=== PATIENT | female | born 1990 | race Caucasian/White ===

== ENCOUNTER 2016-10-17 02:20 | Outpatient (CLI) | payer MEDICAID ==
[~2016-10-17] VITALS: Ht 148.6 cm; Wt 61.6 kg
[2016-10-17 02:25] VITALS: Ht 148.6 cm; Wt 61.6 kg
[2016-10-17 02:26] VITALS: BP 107/78; PULSE 69; RESP 18
[2016-10-17] MEDS ORDERED: PRENAT PO (02:37)
[2016-10-17] MEDS ORDERED: CALC600T11 PO (02:37)
[2016-10-17] MEDS ORDERED: CITRIC ACID/NA CITRATE 30 ML CUP PO ONE (03:00)
--- NOTE | 2016-10-17 03:39 | RADRPT ---
PROCEDURE: ULTRASOUND LIMITED ABDOMEN CLINICAL INDICATION: 26-year-old female with abdominal pain. TECHNIQUE: Multiple sonographic of the right upper quadrant of the abdomen were obtained. The imag es were reviewed on a PACS workstation. COMPARISON: None. FINDINGS: The pancreas is not well visualized secondary to overlying bowel gas. The liver displays normal echogenicity. The liver measures 13.9 cm in length. No evidence of intrah epatic biliary ductal dilatation is seen. The portal and hepatic veins are unremarkable. The gallbladder contains multiple shadowing stones. The gallbladder wall thickness is within normal limits measuring 2.8 mm. No pericholecystic fluid is seen. The common bile duct measures 3.4 mm and is not dilated. The right kidney displays normal echogenicity. The right kidney measures 9.5 cm in maximal length. T here are no focal areas of abnormal echogenicity. There is mild right-sided hydronephrosis. No free fluid is seen. IMPRESSION: 1. Cholelithiasis. 2. Mild right-sided hydronephrosis. .Beto Wilhelm MD, Date Time Electronically viewed and signed by .Beto Wilhelm MD, on 10/17/2016 03:39 .M/
--- NOTE | 2016-10-17 03:40 | RADRPT ---
PROCEDURE: ULTRASOUND OBSTETRICAL CLINICAL INDICATION: 26-year-old female with abdominal/pelvic pain for amniotic fluid evaluation. TECHNIQUE: Multiple sonographic images of the pelvis were obtained. The images were reviewed on a PACS workstation. COMPARISON: No prior studies are available for comparison. FINDINGS: The cervix is not well visualized. There is a single viable intrauterine gestation. Cardiac activit y is present with 146 beats per minute. There is a breech presentation. The placenta is anterior. There is no evidence for an abruption or placenta previa. The amniotic fluid index equals 8.4 cm. IMPRESSION: 1. Single viable intrauterine gestation with breech presentation. 2. The amniotic fluid index equals 8.4 cm. .Beto Wilhelm MD, Date Time Electronically viewed and signed by .Beto Wilhelm MD, on 10/17/2016 03:40 .M/
[2016-10-17 03:48] LABS: ALBUMIN 3.4 g/dl (3.3-4.9)
[2016-10-17 03:49] LABS: POTASSIUM 3.5 mmol/L (3.5-5.1)
[2016-10-17 03:51] LABS: ALBUMIN/GLOBULIN RATIO 1.09; BILIRUBIN,INDIRECT 0.1 mg/dl (0-1.1); BILIRUBIN,TOTAL 0.1 mg/dl (0.2-1.3); CREATININE 0.64 mg/dl (0.44-1.00); TOTAL PROTEIN 6.5 g/dl (6.1-8.1)
[2016-10-17 03:52] LABS: CALCIUM 9.7 mg/dl (8.4-10.2)
--- NOTE | 2016-10-17 05:35 | QN ---
Documentation Comment Laborist Dr Rubalcava's pt 26 y.o. G1 with an IUP at 37 weeks c/o epigastric pain. Pt denied a h/o gallstones. No nausea or vomiting. Pt reports she was breech at her last visit. Denies acid reflux or UC's. PMHx: Uterine fibroids. PSHx: none. NKDA. BP 107/78 T= 97.9. NST: baseline 130 bpm with accels to 170 bpm. No decels. UC's q 7-8 minutes. US: Multiple gallstones. No dilitation of the bile duct. No evidence of gallbladder wall inflammation. BREECH. TAMERA 8.4cm. LABS: ALT/AST . Pt was given Bicitra but it did't change her pain much. CX: closed. A: IUP at 37 weeks. Cholelithiasis. Breech. P: D/C home. Reviewed need to have a low fat diet to minimize the need for the gallbladder to contract. Tylenol prn. POLO REED MD Oct 17, 2016 05:35
--- NOTE | 2016-10-17 06:20 | TRIAGE ---
OB Triage Datetime Report Generated by CPN: 10/17/2016 06:20 Datetime: 10/17/2016 05:20 Stage of : OB Triage Datetime: 10/17/2016 05:00 Labor Evaluation Frequency: IRREGULAR Monitor Mode: External Duration (sec)2399: 70-120 Quality: Mild Pattern: Normal: <= 5 Contractions in 10 Minutes Resting Tone [place]: Relaxed Heart Rate FHR Baseline Rate: 135 Monitor Mode: External US FHR Baseline Changes: No Baseline Change Variability: Moderate 6-25 bpm Accelerations: 15X15 Decelerations: None Datetime: 10/17/2016 04:50 Stage of : OB Triage Datetime: 10/17/2016 04:00 Labor Evaluation Frequency: IRREGULAR Monitor Mode: External Duration (sec)2399: 70 Quality: Mild Pattern: Normal: <= 5 Contractions in 10 Minutes Resting Tone [place]: Relaxed Heart Rate FHR Baseline Rate: 135 Monitor Mode: External US FHR Baseline Changes: No Baseline Change Variability: Moderate 6-25 bpm Accelerations: 15X15 Decelerations: None Category: Category I Datetime: 10/17/2016 03:00 Labor Evaluation Frequency: IRREGULAR Monitor Mode: External Duration (sec)2399: 60-70 Quality: Mild Pattern: Normal: <= 5 Contractions in 10 Minutes Resting Tone [place]: Relaxed Heart Rate FHR Baseline Rate: 125 Monitor Mode: External US FHR Baseline Changes: No Baseline Change Variability: Moderate 6-25 bpm Accelerations: 15X15 Decelerations: None Category: Category I Datetime: 10/17/2016 02:47 Stage of : OB Triage Membrane Status: Intact Datetime: 10/17/2016 02:38 Vaginal Exam Dilatation (cms): 0.0 Effacement (%): 0 Station: -3 Exam By: Elke CUEVAS RN Vaginal Bleeding: None Cervix, Consistency: Firm Cervix, Position: Posterior Datetime: 10/17/2016 02:29 Stage of : OB Triage Assessment Type: Triage Time of Arrival: 10/17/2016 02:59 EGA: 37.0 Arrived By: Wheelchair Arrived From: Home Chief Complaint: EPIGASTRIC PAIN/ NAUSEA Movement: Present Contractions: Denies/Absent Rupture of Membranes: Denies Vaginal Bleeding: None Vaginal Discharge: Denies Recent Sexual Intercouse: Denies Patient Complaints: None Time Provider Notified: 10/17/2016 02:47 Provider Notified: DR REED Initial Plan: CALL DAHLIA GREENE Maternal Assessment Level of Consciousness: Fully Conscious DTR's/Clonus: DTRs 2+; No Clonus Headache: Denies Blurred Vision: No Respiratory Effort: Unlabored; Regular Rhythm; Equal Expansion Breath Sounds, Left: Clear and Equal Breath Sounds, Right: Clear and Equal Nausea/Vomiting: Denies RUQ Epigastric Pain: Denies Lower Extremities Edema: None Degree: None Upper Extremities Edema: None Degree: None Facial Edema: None Temperature Route: Oral Fall Risk Assessment History of Falling: (0) No Secondary Diagnosis: (0) No Ambulatory Aid: (0) Bedrest/Nurse Assist IV Therapy: (0) No Gait: (0) Normal/Bedrest/Immobile Mental Status: (0) Oriented to Own Ability Fall Score: 0 Fall Risk Score Definition: No Risk: No action required Monitor Mode: External Monitor Mode: External US Pain Assessment Pain Scale: 7 Pain Presence: Intermittent Pain Location: Abdomen Datetime: 10/17/2016 02:24 Time of Arrival: 10/17/2016 02:16 EGA: 37.0 Arrived By: Wheelchair Arrived From: Home Movement: Present Contractions: Denies/Absent Patient Complaints: Epigastric Pain
== END 2016-10-17 05:30 | disposition home or self-care (01) ==
LOC: OBT 02:20 → L-D 02:20 → OBT 05:30
PROVIDERS: ATTEND Obstetrics & Gynecology
DX: O99.613 Diseases of the digestive system complicating pregnancy, third trimester (principal); K80.20 Calculus of gallbladder without cholecystitis without obstruction; Z3A.37 37 weeks gestation of pregnancy
CPT/HCPCS: 36415; 76705; 76815; 80053; Z7500; Z7610; G0463

== ENCOUNTER 2016-10-30 17:41 | Inpatient (IN) | payer MEDICAID ==
[~2016-10-30] VITALS: Ht 149.9 cm; Wt 63.4 kg
[~2016-10-30 17:41] MED LIST: CALC600T11 PO; PRENAT PO
[2016-10-30 17:47] VITALS: Ht 149.9 cm; Wt 63.4 kg
[2016-10-30 17:48] VITALS: BP 112/66; RESP 19
--- NOTE | 2016-10-30 18:03 | TRIAGE ---
OB Triage Datetime Report Generated by CPN: 10/30/2016 18:02 Datetime: 10/30/2016 17:57 Vaginal Exam Dilatation (cms): 3.0 Effacement (%): 90 Station: -2 Exam By: MAGALY SMITH Vaginal Bleeding: None Cervix, Consistency: Soft Cervix, Position: Midposition Presentation 'A': Cephalic Datetime: 10/30/2016 17:46 Assessment Type: Triage Maternal Assessment Level of Consciousness: Fully Conscious DTR's/Clonus: DTRs 2+; No Clonus Headache: Denies Blurred Vision: No Respiratory Effort: Unlabored; Regular Rhythm; Equal Expansion Breath Sounds, Left: Clear and Equal Breath Sounds, Right: Clear and Equal Nausea/Vomiting: Denies RUQ Epigastric Pain: Denies Lower Extremities Edema: None Degree: None Upper Extremities Edema: None Degree: None Facial Edema: None Fall Risk Assessment History of Falling: (0) No Secondary Diagnosis: (0) No Ambulatory Aid: (0) Bedrest/Nurse Assist IV Therapy: (0) No Gait: (0) Normal/Bedrest/Immobile Mental Status: (0) Oriented to Own Ability Fall Score: 0 Fall Risk Score Definition: No Risk: No action required Datetime: 10/30/2016 17:45 Time of Arrival: 10/30/2016 17:45 EGA: 38.6 Arrived By: Ambulatory Arrived From: Home Chief Complaint: PT CAME IN C/O LEAKING FLUID SINCE 1200 Movement: Present Contractions: Denies/Absent Rupture of Membranes: Denies Vaginal Discharge: Denies Recent Sexual Intercouse: Denies Abdominal Trauma: Not Applicable Additional Patient Complaints: NONE Time Provider Notified: 10/30/2016 18:00 Provider Notified: TUCKER Initial Plan: MONITOR, ROM PLUS AND VE Datetime: 10/17/2016 02:29 EGA: 37.0 Fall Score: 0 Fall Risk Score Definition: No Risk: No action required Datetime: 10/17/2016 02:24 EGA: 37.0
[2016-10-30] MEDS ORDERED: LACTATED RINGER'S 1,000 ML IV SCH (18:40)
[2016-10-30 18:48] LABS: ADD SCAN DIFF NO
--- NOTE | 2016-10-30 18:49 | RADRPT ---
PROCEDURE: US OB. CLINICAL INDICATION: Position, spontaneous rupture of membranes TECHNIQUE: Transabdominal views of the pelvis are available for review. COMPARISON: None. FINDINGS: There is a single intrauterine gestation in a breech position. The heart rate is present at 144 bpm. The placenta is anterior and to the left in location. There is no evidence of placenta previa or a placental abruption. RPTAT: AA IMPRESSION: Breech presentation. Physician Moe Date Time Electronically viewed and signed by Physician Moe on 10/30/2016 18:49 RA/
[2016-10-30 18:51] LABS: BASOPHILS % 0.1 % (0.0-2.0); EOSINOPHILS # 0.1 10^3/ul (0.0-0.5); EOSINOPHILS % 0.5 % (0.0-7.0); HEMATOCRIT 33.4 % (37.0-47.0); HEMOGLOBIN 11.6 g/dl (12.0-16.0); LYMPHOCYTES # 2.1 10^3/ul (0.8-2.9); LYMPHOCYTES % 22.8 % (15.0-51.0); MEAN CORPUSCULAR HEMOGLOBIN 32.6 pg (29.0-33.0); MEAN CORPUSCULAR HGB CONC 34.7 g/dl (32.0-37.0); MEAN CORPUSCULAR VOLUME 93.8 fl (82.0-101.0); MEAN PLATELET VOLUME 11.3 fl (7.4-10.4); MONOCYTE # 0.6 10^3/ul (0.3-0.9); MONOCYTES % 6.5 % (0.0-11.0); NEUTROPHIL # 6.3 10^3/ul (1.6-7.5); NEUTROPHILS % 69.6 % (39.0-77.0); PLATELET COUNT 209 10^3/UL (140-415); RED BLOOD COUNT 3.56 10^6/ul (4.20-5.40); RED CELL DISTRIBUTION WIDTH 13.2 % (11.5-14.5); WHITE BLOOD COUNT 9.1 10^3/ul (4.8-10.8)
[2016-10-30] MEDS ORDERED: METHYLERGONOVINE 0.2 MG INJ IM PRN (19:00)
[2016-10-30] MEDS ORDERED: OXYTOCIN 30 UNITS/LR 500 ML IV PRN (19:00)
[2016-10-30] MEDS ORDERED: CEFAZOLIN 2 GM/50 ML (PMX) 50 ML IV SCH (19:00)
[2016-10-30] MEDS ORDERED: CARBOPROST 250 MCG INJ IM PRN (19:00)
[2016-10-30] MEDS ORDERED: OXYTOCIN 30 UNITS/LR 500 ML IV SCH (19:00)
[2016-10-30] MEDS ORDERED: MISOPROSTOL 200 MCG TAB PR PRN (19:00)
[2016-10-30 19:06] LABS: PARTIAL THROMBOPLASTIN TIME 26.4 Sec (25.0-35.0)
[2016-10-30 19:27] LABS: INR 0.94; PROTIME 12.6 Sec (12.2-14.2)
[2016-10-30] MEDS ORDERED: CITRIC ACID/NA CITRATE 30 ML CUP PO ONE (19:30)
[2016-10-30] MEDS ORDERED: morphine SULFATE/PF (10 MG/10 ML) INJ ONE (19:52)
[2016-10-30] MEDS ORDERED: PHENYLephrine (100 MCG/ML) 5ML SYG ONE (19:52)
[2016-10-30] MEDS ORDERED: ONDANSETRON 4 MG INJ ONE (20:06)
[2016-10-30] MEDS ORDERED: EPHEDrine SULFATE 50 MG/5 ML SYG ONE (20:06)
[2016-10-30] MEDS ORDERED: METOCLOPRAMIDE 10 MG INJ IV PRN (20:30)
[2016-10-30] MEDS ORDERED: HYDROmorphONE 1 MG/ML SYG IV PRN ×2 (20:30)
[2016-10-30] MEDS ORDERED: ONDANSETRON 4 MG INJ IV PRN (20:30)
[2016-10-30] MEDS ORDERED: MEPERIDINE 25 MG INJ IV PRN (20:30)
[2016-10-30] MEDS ORDERED: HYDROmorphONE (0.2 MG/ML) 10ML SYG IV PRN ×3 (20:30)
[2016-10-30] MEDS ORDERED: DIPHENHYDRAMINE 50 MG INJ IV PRN ×2 (20:30)
[2016-10-30] MEDS ORDERED: NALOXONE (0.4 MG/ML) INJ IV PRN (20:30)
[2016-10-30] MEDS ORDERED: FENTAnyl 50 MCG/ML VIAL IV PRN (20:30)
[2016-10-30] MEDS ORDERED: FENTAnyl 50 MCG/ML VIAL ONE (20:31)
--- NOTE | 2016-10-30 21:04 | HP ---
Date/Time of Note Date/Time of Note DATE: 10/30/16 TIME: 20:59 OB - History Hx of Present Free Text/Dictation admitted for C/O SROM and labor pains started in PM Last Menstrual Period: December 30, 2016 Estimated Due Date: Oct 07, 2016 : 1 Para: 0 Care: Good Care Ultrasounds: Normal mid trimester US Obstetrical Complications: None, Growth Restriction, Other (leiomyoma of the uterus ) Medical Complications: None Past Family/Social History * Past Medical, Surgical, Family and Obstetric Histories reviewed from chart. Blood Type: O+ Rubella: immune RPR/VDRL: Negative GBS Status: Unknown HBsAG: Negative OB Admission Exam Vital Signs Vital Signs Vital Signs Date Time Temp Pulse Resp B/P Pulse Ox O2 Delivery O2 Flow Rate FiO2 10/30/16 17:48 98.0 19 112/66 99 Room Air Physical Exam HEENT: WNL Heart: Rhythm Normal Lungs: Clear, Equal Abdomen: WNL Extremities: Normal Reflexes: Normal Cervical Dilatation: 3cm Effacement: 50% Station: -3 Membranes: Intact Heart Rate: 130's Accelerations: Accelerations Present Decelerations: No Decelerations Varibility: Moderate Contractions on Admission: 6-10 Minutes Apart Date/Time Contractions Began: 10/30/2016 Frequency of Contractions: q5 Duration: >45 seconds Intensity: Mild Last 72 hours Lab Results CBC & BMP 10/30/16 18:30 OB Assessment/Plan Reason for admission: section (for breech presentation ) Other Assessment: term gestation breech presentation labor pains Other plan: primary C/S JENN WHITE MD Oct 30, 2016 21:04
--- NOTE | 2016-10-30 21:10 | OPR ---
Operative Report Planned Procedure Procedure date Oct 30, 2016 Procedure(s) primary C/S Performed by: JENN WHITE MD Assisting provider: MARISA MARINELLI MD Anesthesiologist: PETAR RITCHIE Pre-procedure diagnosis term gestation breech presentation labor pains Anesthesia Type: spinal Procedure Description Under satisfactory anaesthesia a Pfannenstiel incision was made two fingerbreadth above and parallel to the symphysis of pubis. Incision was extended laterally to the border of the Recti muscles on either sides. Incision was carried down with sharp and blunt dissection until fascia was reached. Anterior Recti muscle fascia was incised in mid portion and incision extended laterally to the border of skin incision. Fascia was mobilized from muscle superiorly and Recti muscles were from midline using sharp and blunt dissection. Peritoneum was visualized; Avoiding bowel and bladder it was incised . Incision was extended superiorly and inferiorly. Bladder blade was placed. Posterior peritoneum covering the lower segment of the uterus and lower segment of the uterus were incised. Incision was extended laterally to the border of Round Lig. on either sides and baby was delivered via total breech extraction without difficulty . Amniotic fluid appeared clear. Cord blood was obtained and cord had 3 vessels . Placenta was delivered spontaneously and appeared intact and complete. Intrauterine cavity was rubbed with a laparotomy sponge. Uterine incision was closed in 2 layers using running stitches of No1 Monocryl. Hemostasis appeared secure. Ovaries and Fallopian tubes were within normal limits. Announcing needle, lap sponge and instrument count to be correct abdomen was closed in layers as follows: Peritoneum and Recti muscles with running stitches of 20 Vicryl. Fascia with running stitch of No 1 PDS. Subcutaneous tissue with running stitches of 20 Chromic and skin was closed using trevon. Patient tolerated the procedure well and was transferred to [facility] in good condition. Post-Procedure Post-procedure diagnosis S/P C/S Findings: Live Baby in hector breech presentation 7X 7X 10 cm uterine leiomyoma in posterior wall Specimen removed: No Complications: None Pt Condition post procedure: stable Disposition: PACU Physician Certification I, the undersigned physician, hereby certify that I have discussed the procedure described in this consent form with this patient (or the patient's legal electronics parts sales representative), including: * The risk and benefits of the procedure; * Any adverse reactions that may reasonably be expected to occur; * Any alternative efficacious methods of treatment which may be medically viable ; * The potential problems that may occur during recuperation; * Potential for blood transfusion and associated risks/benefits; and * Any research or economic interest I may have regarding this treatment. I further certify that the patient/legally responsible person was encouraged to ask question and that all questions were answered. JENN WHITE MD Oct 30, 2016 21:10
[2016-10-30] MEDS: KETOROLAC 30 MG INJ IV PRN (21:30)
[2016-10-30 23:30] VITALS: BP 118/72; PULSE 65; RESP 18
[2016-10-31] MEDS ORDERED: NA PHOSPHATE/BIPHOS 133 ML ENEMA PR PRN
[2016-10-31] MEDS ORDERED: CARBOPROST 250 MCG INJ IM PRN
[2016-10-31] MEDS ORDERED: LANOLIN 7 GM TUBE TOP PRN
[2016-10-31] MEDS ORDERED: MISOPROSTOL 200 MCG TAB PR PRN
[2016-10-31] MEDS ORDERED: OXYTOCIN 30 UNITS/LR 500 ML IV PRN
[2016-10-31] MEDS ORDERED: METHYLERGONOVINE 0.2 MG INJ IM PRN
[2016-10-31] MEDS: CLINDAMYCIN 300 MG CAP PO SCH ×4 (00:23→18:09)
[2016-10-31] MEDS: LACTATED RINGER'S 1,000 ML IV SCH ×3 (01:05→17:23)
[2016-10-31 04:00] VITALS: BP 106/58; PULSE 68; RESP 18
[2016-10-31] MEDS: CEFAZOLIN 2 GM/50 ML (PMX) 50 ML IVPB SCH ×3 (04:42→21:23)
[2016-10-31 08:02] LABS: ADD SCAN DIFF NO
[2016-10-31 08:05] LABS: BASOPHILS % 0.1 % (0.0-2.0); EOSINOPHILS % 0.1 % (0.0-7.0); HEMATOCRIT 31.2 % (37.0-47.0); HEMOGLOBIN 10.9 g/dl (12.0-16.0); LYMPHOCYTES # 1.4 10^3/ul (0.8-2.9); LYMPHOCYTES % 9.1 % (15.0-51.0); MEAN CORPUSCULAR HEMOGLOBIN 32.7 pg (29.0-33.0); MEAN CORPUSCULAR HGB CONC 34.9 g/dl (32.0-37.0); MEAN CORPUSCULAR VOLUME 93.7 fl (82.0-101.0); MEAN PLATELET VOLUME 10.8 fl (7.4-10.4); MONOCYTE # 0.6 10^3/ul (0.3-0.9); NEUTROPHIL # 13.2 10^3/ul (1.6-7.5); PLATELET COUNT 187 10^3/UL (140-415); RED BLOOD COUNT 3.33 10^6/ul (4.20-5.40); RED CELL DISTRIBUTION WIDTH 13.3 % (11.5-14.5); WHITE BLOOD COUNT 15.3 10^3/ul (4.8-10.8)
[2016-10-31 08:30] VITALS: BP 96/54; PULSE 77; RESP 16
[2016-10-31] MEDS: KETOROLAC 30 MG INJ IV PRN ×2 (08:53→15:19)
[2016-10-31] MEDS: SENNA/DOCUSATE NA (8.6MG/50MG) TAB PO SCH ×2 (08:53→20:08)
--- NOTE | 2016-10-31 09:12 | CONS ---
Date/Time of Note Date/Time of Note DATE: 10/31/16 TIME: 09:10 Consultation Date/Type/Reason Admit Date/Time Oct 30, 2016 at 18:00 Initial Consult Date 10/31/16 Type of Consultation: Anesthesiology Reason for Consultation Follow-up visit 24 HR Interval Summary Free Text/Dictation Pt seen and examined s/p POD#1 received Duramorph spinal anesthetic for post-op pain x24 hours. Pt states she has minimal pain which is controlled adequately, no N/V/D/NOONAN. Will follow up PRN. Constitutional: no complaints Exam/Review of Systems Vital Signs Vitals Vital Signs Date Time Temp Pulse Resp B/P Pulse Ox O2 Delivery O2 Flow Rate FiO2 10/31/16 04:00 98.0 68 18 106/58 Room Air 10/30/16 17:48 99 Intake and Output 10/30/16 10/30/16 10/31/16 15:00 23:00 07:00 Intake Total 1200 ml 375 ml Output Total 1850 ml 550 ml Balance -650 ml -175 ml Results Result Diagram: 10/31/16 0745 Results 24 hrs Laboratory Tests Test 10/30/16 17:58 10/30/16 18:30 10/31/16 07:45 Membranes Rupture NEGATIVE White Blood Count 9.1 15.3 #H Red Blood Count 3.56 L 3.33 L Hemoglobin 11.6 L 10.9 L Hematocrit 33.4 L 31.2 L Mean Corpuscular Volume 93.8 93.7 Mean Corpuscular Hemoglobin 32.6 32.7 Mean Corpuscular Hemoglobin Concent 34.7 34.9 Red Cell Distribution Width 13.2 13.3 Platelet Count 209 187 Mean Platelet Volume 11.3 H 10.8 H Neutrophils % 69.6 86.0 H Lymphocytes % 22.8 9.1 L Monocytes % 6.5 4.0 Eosinophils % 0.5 0.1 Basophils % 0.1 0.1 Nucleated Red Blood Cells % 0.0 0.0 Neutrophils # 6.3 13.2 H Lymphocytes # 2.1 1.4 Monocytes # 0.6 0.6 Eosinophils # 0.1 0.0 Basophils # 0.0 0.0 Nucleated Red Blood Cells # 0.0 0.0 Prothrombin Time 12.6 Prothrombin Time Ratio 1.0 INR International Normalized Ratio 0.94 Activated Partial Thromboplast Time 26.4 Medications Medications Current Medications Ketorolac Tromethamine (Toradol) 30 mg Q6H PRN IV PAIN Last administered on 08:53; Admin Dose 30 MG; Start 10/30/16 at 20:30; Stop 10/31/16 at 20:29 Hydromorphone HCl (Dilaudid) 0.2 mg Q3H PRN IV PAIN LEVEL 1-5; Start 10/30/16 at 20:30; Stop 10/31/16 at 20:29 Hydromorphone HCl (Dilaudid) 0.4 mg Q3H PRN IV PAIN LEVEL 6-10 Last administered on 10/31/16 00:58; Admin Dose 0.4 MG; Start 10/30/16 at 20:30; Stop 10/31/16 at 20:29 Diphenhydramine HCl 25 mg 25 mg Q6H PRN IV ITCHING; Start 10/30/16 at 20:30; Stop 10/31/16 at 20:29 Lactated Ringer's 1,000 ml @ 125 mls/hr Q8H IV Last administered on 10/31/16 08:52; Admin Dose 125 MLS/HR; Start 10/30/16 at 23:49 Cefazolin Sodium/ Dextrose (Ancef 2 Gm/50 ml (Pmx)) 50 ml @ 100 mls/hr Q8H IVPB Last administered on 10/31/16 04:42; Admin Dose 100 MLS/HR; Start at 05:00; Stop 10/31/16 at 21:29 Ibuprofen (Motrin) 800 mg Q8 PO ; Start 10/31/16 at 22:00 Simethicone (Mylicon) 160 mg Q8H PRN PO DISTENSION/GAS/BLOATING; Start at 00:00 Senna/Docusate Sodium (Senokot-S) 1 tab BID PO Last administered on 10/31/16 08:53; Admin Dose 1 TAB; Start 10/31/16 at 09:00 Sodium Biphosphate/ Sodium Phosphate (Fleet Enema) 133 ml DAILY PRN [place] CONSTIPATION; Start 10/31/16 at 00:00 Diphtheria/ Tetanus/Acell Pertussis 0.5 ml 0.5 ml ONCE ONCE IM* ; Start at 09:00; Stop 11/02/16 at 09:01 Oxytocin/Lactated Ringer's 500 ml @ 0 mls/hr ONCE PRN IV For Hemorrhage Management; Start 10/31/16 at 00:00 Methylergonovine Maleate (Methergine) 0.2 mg ONCE PRN IM VAGINAL BLEEDING; Start 10/31/16 at 00:00 Carboprost Tromethamine (Hemabate) 250 mcg ONCE PRN IM VAGINAL BLEEDING; Start 10/31/16 at 00:00 Misoprostol (Cytotec) 1,000 mcg ONCE PRN [place] VAGINAL BLEEDING; Start 10/31/16 at 00:00 Acetaminophen/ Codeine Phosphate (Tylenol No.3) 2 tab Q4H PRN PO PAIN LEVEL 1-5 ; Start 10/31/16 at 20:30 Oxycodone/ Acetaminophen (Percocet (5/ 325)) 2 tab Q4H PRN PO PAIN LEVEL 6-10; Start 10/31/16 at 20:30 Clindamycin HCl (Cleocin) 300 mg Q6 PO Last administered on 10/31/16t 05:36; Admin Dose 300 MG; Start 10/31/16 at 00:00 Bisacodyl (Dulcolax Supp) 10 mg ONCE ONCE [place] ; Start 10/31/16 at 10:00; Stop at 10:01 PETAR RITCHIE Oct 31, 2016 09:12
--- NOTE | 2016-10-31 09:34 | RADRPT ---
PROCEDURE: XR Chest 1 View. CLINICAL INDICATION: Positive PPD TECHNIQUE: AP view of the chest was obtained. COMPARISON: None. FINDINGS: The cardiomediastinal silhouette is within normal limits. No consolidations are identified. No pneu mothorax is seen. Osseous structures are intact. IMPRESSION: Clear lungs. No radiographic evidence of active tuberculosis infection. RPTAT: AA .Hamzah Capone MD, Date Time Electronically viewed and signed by .Hamzah Capone MD, on 10/31/2016 09:34 .P/
[2016-10-31] MEDS ORDERED: BISACODYL 10 MG SUPP PR ONE (10:00)
[2016-10-31 12:00] VITALS: BP 93/54; PULSE 85; RESP 16
[2016-10-31 15:20] VITALS: BP 101/59; PULSE 85; RESP 16
--- NOTE | 2016-10-31 15:25 | PN ---
Date/Time of Note Date/Time of Note DATE: 10/31/16 TIME: 15:22 Assessment/Plan VTE Prophylaxis VTE Prophylaxis Intervention: ambulation Lines/Catheters IV Catheter Type (from Nrsg): Peripheral IV Assessment/Plan Assessment/Plan POD # 1 S/P C/S will advance diet and ambulate Subjective 24 Hr Interval Summary NO BM Passing flatus Constitutional: BM, ambulates, flatus, improved, no complaints, urine output Pain Control: well controlled Exam/Review of Systems Vital Signs Vitals Vital Signs Date Time Temp Pulse Resp B/P Pulse Ox O2 Delivery O2 Flow Rate FiO2 10/31/16 12:00 98.3 85 16 93/54 Room Air 10/30/16 17:48 99 Intake and Output 10/30/16 10/30/16 10/31/16 15:00 23:00 07:00 Intake Total 1200 ml 375 ml Output Total 1850 ml 550 ml Balance -650 ml -175 ml Exam Free Text/Dictation VSS P/E: NL incision covered Abdomen: soft bs + Constitutional: alert, oriented, well developed Psych: nl mood/affect, no complaints Head: atraumatic, normocephalic Eyes: EOMI, nl conjunctiva, nl lids, nl sclera ENMT: mucosa pink and moist, nl external ears & nose, nl lips & teeth, nl nasal mucosa & septum Neck: non-tender, supple Respiratory: clear to auscultation, normal air movement Cardiovascular: nl pulses, regular rate and rhythm Gastrointestinal: nl liver, spleen, non-tender, soft Musculoskeletal: nl extremities to inspection, nl gait and stance Extremities: normal pulses Neurological: CARD BRUSHER II-XII intact, nl mental status, nl speech, nl strength Skin: nl turgor, rash or lesions Lymph: nl lymph nodes Results Result Diagram: 10/31/16 0745 JENN WHITE MD Oct 31, 2016 15:25
[2016-10-31] MEDS ORDERED: INFLUENZA VIRUS VACCINE 0.5 ML (DISPENSING) IM* ONE (19:30)
[2016-10-31 20:00] VITALS: BP 90/57; RESP 18
[2016-10-31] MEDS: OXYCODONE/ACETAMINOPHEN (5/325) TAB PO PRN (20:09)
[2016-10-31] MEDS ORDERED: ACETAMINOPHEN/CODEINE #3 TAB PO PRN (20:30)
[2016-10-31] MEDS: IBUPROFEN 800 MG TAB PO SCH (21:23)
[2016-11-01] MEDS: CLINDAMYCIN 300 MG CAP PO SCH ×5 (00:30→23:51)
[2016-11-01 04:00] VITALS: BP 91/53; PULSE 88; RESP 19
[2016-11-01] MEDS: IBUPROFEN 800 MG TAB PO SCH ×3 (05:31→22:23)
[2016-11-01 08:46] LABS: ADD SCAN DIFF NO
[2016-11-01 08:53] LABS: BASOPHILS % 0.2 % (0.0-2.0); EOSINOPHILS # 0.1 10^3/ul (0.0-0.5); EOSINOPHILS % 0.5 % (0.0-7.0); HEMATOCRIT 31.1 % (37.0-47.0); HEMOGLOBIN 10.9 g/dl (12.0-16.0); LYMPHOCYTES # 1.4 10^3/ul (0.8-2.9); LYMPHOCYTES % 9.2 % (15.0-51.0); MEAN CORPUSCULAR HEMOGLOBIN 33.3 pg (29.0-33.0); MEAN CORPUSCULAR VOLUME 95.1 fl (82.0-101.0); MEAN PLATELET VOLUME 11.2 fl (7.4-10.4); MONOCYTE # 0.5 10^3/ul (0.3-0.9); MONOCYTES % 3.1 % (0.0-11.0); NEUTROPHIL # 12.8 10^3/ul (1.6-7.5); NEUTROPHILS % 86.5 % (39.0-77.0); PLATELET COUNT 218 10^3/UL (140-415); RED BLOOD COUNT 3.27 10^6/ul (4.20-5.40); RED CELL DISTRIBUTION WIDTH 13.7 % (11.5-14.5); WHITE BLOOD COUNT 14.8 10^3/ul (4.8-10.8)
[2016-11-01] MEDS: SENNA/DOCUSATE NA (8.6MG/50MG) TAB PO SCH ×2 (09:00→20:19)
[2016-11-01 09:30] VITALS: BP 83/56; PULSE 95; RESP 20
[2016-11-01] MEDS: OXYCODONE/ACETAMINOPHEN (5/325) TAB PO PRN ×2 (11:53→20:19)
[2016-11-01] MEDS: LACTATED RINGER'S 1,000 ML IV SCH ×2 (13:55→13:56)
[2016-11-01 16:00] VITALS: BP 96/67; PULSE 85; RESP 19
--- NOTE | 2016-11-01 17:38 | DS ---
Date/Time of Note Date/Time of Note home next day DATE: 11/01/16 TIME: 17:36 Obstetrical Discharge Record Final Diagnosis Final Diagnosis: Term delivered Other Final Diagnosis S/P C/S Section Section: Primary Primary Indication Breech presentation Condition on Discharge Physical Assessment Last Vitals: See nurses notes Voiding: Yes Bowel Movement: Yes Breast: Soft, non-tender, Filling Fundus: Firm Abdomen and Incision: soft BS + Incision: healing well Episiotomy: NA Calf Tenderness: No Patient Condition: Good JENN WHITE MD Nov 01, 2016 17:38
--- NOTE | 2016-11-01 17:44 | DS ---
Date/Time of Note Date/Time of Note DATE: 11/01/16 TIME: 17:38 Discharge Summary Admission/Discharge Info Admit Date/Time Oct 30, 2016 at 18:00 Discharge Date/Time 11/02/2016 Final Diagnosis S/P C/S Patient Condition: Good Procedures primary C/S Hx of Present Illness 26 y/o female underwent primary C/S for breech presentation Hospital Course Uncomplicated Home Meds Reported Medications Calcium Carbonate* (Calcium Carbonate*) 600 MG Ca Tab, 600 MG PO DAILY, TAB 10/17/16 Multivit/Min/Fol Ac/Iron/Pren* ( S*) 1 Tab Tab, 1 TAB PO DAILY, TAB 10/17/16 Follow-up Plan 2 -3 days for staple removal Pending Labs Laboratory Tests Test 11/01/16 08:23 White Blood Count 14.810^3/ul (4.8-10.8) Red Blood Count 3.2710^6/ul (4.20-5.40) Hemoglobin 10.9g/dl (12.0-16.0) Hematocrit 31.1% (37.0-47.0) Mean Corpuscular Volume 95.1fl (82.0-101.0) Mean Corpuscular Hemoglobin 33.3pg (29.0-33.0) Mean Corpuscular Hemoglobin Concent 35.0g/dl (32.0-37.0) Red Cell Distribution Width 13.7% (11.5-14.5) Platelet Count 42803^3/UL (140-415) Mean Platelet Volume 11.2fl (7.4-10.4) Neutrophils % 86.5% (39.0-77.0) Lymphocytes % 9.2% (15.0-51.0) Monocytes % 3.1% (0.0-11.0) Eosinophils % 0.5% (0.0-7.0) Basophils % 0.2% (0.0-2.0) Nucleated Red Blood Cells % 0.0/100WBC (0.0-0.0) Neutrophils # 12.810^3/ul (1.6-7.5) Lymphocytes # 1.410^3/ul (0.8-2.9) Monocytes # 0.510^3/ul (0.3-0.9) Eosinophils # 0.110^3/ul (0.0-0.5) Basophils # 0.010^3/ul (0.0-0.1) Nucleated Red Blood Cells # 0.010^3/ul (0.0-0.0) JENN WHITE MD Nov 01, 2016 17:44
--- NOTE | 2016-11-01 17:46 | PD.PPDC ---
DIRECTOR DISTRIBUTION Discharge Instruction Provider Information Physician Information 26 y/o female underwent primary C/S Diagnosis Final Diagnosis: S/P C/S Condition Patient Condition: Good Diet Diet: Resume Regular Diet Activity/Restrictions Activity: December Shower Restrictions: No Exercising No Lifting Nothing in the Vagina Return to Work or School: December 31, 2016 Follow-up Follow-up with Physician: 3, Day/Days (in clinic for staple removal ) Return to clinic for CAFE ASSISTANT Instructions: Fever greater than 101 Chills OB Instructions: Breast Tenderness Depression Surgical Instructions: Incisional Drainage Incisional Redness JENN WHITE MD Nov 01, 2016 17:46
[2016-11-01] MEDS ORDERED: Oxycodone/Acetamin (5/325) PO (17:49)
[2016-11-01] MEDS ORDERED: IBUP800T25 PO (17:49)
[2016-11-01 20:19] VITALS: BP 92/67; PULSE 102; RESP 18
[2016-11-02 04:00] VITALS: BP 98/54; PULSE 86; RESP 18
[2016-11-02] MEDS: IBUPROFEN 800 MG TAB PO SCH ×2 (05:32→14:02)
[2016-11-02] MEDS: CLINDAMYCIN 300 MG CAP PO SCH ×2 (05:32→12:30)
[2016-11-02 08:08] LABS: ADD SCAN DIFF NO
[2016-11-02 08:11] LABS: BASOPHILS % 0.2 % (0.0-2.0); EOSINOPHILS # 0.2 10^3/ul (0.0-0.5); EOSINOPHILS % 1.6 % (0.0-7.0); HEMATOCRIT 28.2 % (37.0-47.0); HEMOGLOBIN 9.5 g/dl (12.0-16.0); LYMPHOCYTES # 1.6 10^3/ul (0.8-2.9); MEAN CORPUSCULAR HEMOGLOBIN 32.2 pg (29.0-33.0); MEAN CORPUSCULAR HGB CONC 33.7 g/dl (32.0-37.0); MEAN CORPUSCULAR VOLUME 95.6 fl (82.0-101.0); MONOCYTE # 0.6 10^3/ul (0.3-0.9); MONOCYTES % 4.8 % (0.0-11.0); NEUTROPHIL # 9.7 10^3/ul (1.6-7.5); NEUTROPHILS % 79.7 % (39.0-77.0); PLATELET COUNT 209 10^3/UL (140-415); RED BLOOD COUNT 2.95 10^6/ul (4.20-5.40); RED CELL DISTRIBUTION WIDTH 13.8 % (11.5-14.5); WHITE BLOOD COUNT 12.1 10^3/ul (4.8-10.8)
[2016-11-02] MEDS: SENNA/DOCUSATE NA (8.6MG/50MG) TAB PO SCH (08:49)
[2016-11-02] MEDS ORDERED: DIPHTH/TET/ACEL PERTUSS (ADULT) 0.5 ML VIAL IM* ONE (09:00)
[2016-11-02] MEDS ORDERED: CLIN-73 PO (15:06)
[2016-11-02] MEDS: OXYCODONE/ACETAMINOPHEN (5/325) TAB PO PRN (15:39)
[2016-11-02 16:00] VITALS: BP 91/63; PULSE 86; RESP 18
== END 2016-11-02 18:47 | disposition home or self-care (01) | DRG 766 ==
LOC: OBT 17:41 → L-D 17:41 → OBT 18:00 → L-D 19:44 → PP1 23:30
PROVIDERS: ADMIT Obstetrics & Gynecology; ATTEND Obstetrics & Gynecology
PROC: 10D00Z1 Extraction of Products of Conception, Low, Open Approach (ICD-10-PCS; principal; 2016-10-30 22:00)
DX: O32.1XX0 Maternal care for breech presentation, not applicable or unspecified (principal); Z37.0 Single live birth; Z3A.37 37 weeks gestation of pregnancy
CPT/HCPCS: 71010; 76815; 84112; 85025; 85610; 85730; 86592; 86850; 86900; 86901; 86920; 90686; 90715; 99464; G0463; J0690; J1170; J1885; J2274; J2370; J2405; J2590; J3010; J7120

== ENCOUNTER 2016-12-05 18:40 | Emergency (ER) | payer MEDICAID ==
[~2016-12-05] VITALS: Ht 157.5 cm; Wt 96.5 kg
[~2016-12-05 18:40] MED LIST changes: +CLIN-73 PO; +IBUP800T25 PO; +Oxycodone/Acetamin (5/325) PO
[2016-12-05 18:47] VITALS: Ht 157.5 cm; Wt 96.5 kg
[2016-12-05] MEDS ORDERED: ONDANSETRON (ODT) 4 MG TAB ODT STA (21:02)
--- NOTE | 2016-12-05 21:28 | RADRPT ---
PROCEDURE: US Abdomen. CLINICAL INDICATION: abdominal pain TECHNIQUE: Multiple real-time images were acquired of the patient's right upper quadrant abdomen a nd retroperitoneum utilizing a high resolution transducer. COMPARISON: 10/17/2016 FINDINGS: The liver demonstrates normal echogenicity. The liver is normal in size and no focal solid lesions are seen. The liver measures 15 cm in length. The portal vein is patent with normal direction of burton w. No intrahepatic biliary dilatation is seen. The gallbladder is contracted with multiple calcified stones. There is no pericholecystic fluid or gallbladder wall thickening. The common bile duct measures 2 mm in maximal dimension. The visualized portions of the pancreas are unremarkable. The tail of the pancreas is not seen. No free fluid is identified. The right kidney is normal in size, and demonstrate normal echogenicity and cortical thickness. The right kidney measures 8.7 cm in long dimension. There is mild right-sided hydronephrosis. There ar e no kidney stones. RPTAT: AA IMPRESSION: Contracted gallbladder with multiple calcified stones. Mild right-sided hydronephrosis, unchanged. .Travis Gotti MD, Date Time Electronically viewed and signed by .Travis Gotti MD, on 12/05/2016 21:28 .S/
[2016-12-05] MEDS ORDERED: HYDROCODONE/APAP (5/325) TAB PO ONE (21:30)
[2016-12-05 21:49] LABS: ADD SCAN DIFF NO
[2016-12-05 21:53] LABS: BASOPHILS % 0.3 % (0.0-2.0); EOSINOPHILS # 0.2 10^3/ul (0.0-0.5); EOSINOPHILS % 2.1 % (0.0-7.0); HEMATOCRIT 36.8 % (37.0-47.0); HEMOGLOBIN 12.5 g/dl (12.0-16.0); LYMPHOCYTES # 2.2 10^3/ul (0.8-2.9); LYMPHOCYTES % 24.5 % (15.0-51.0); MEAN CORPUSCULAR HEMOGLOBIN 31.3 pg (29.0-33.0); MONOCYTE # 0.6 10^3/ul (0.3-0.9); MONOCYTES % 6.1 % (0.0-11.0); NEUTROPHIL # 6.1 10^3/ul (1.6-7.5); NEUTROPHILS % 66.7 % (39.0-77.0); PLATELET COUNT 355 10^3/UL (140-415); RED CELL DISTRIBUTION WIDTH 12.6 % (11.5-14.5); WHITE BLOOD COUNT 9.2 10^3/ul (4.8-10.8)
[2016-12-05 22:03] LABS: ADD UMIC YES; URINE BILIRUBIN (Dip) NEGATIVE (NEGATIVE); URINE BLOOD (Dip) 1+ (NEGATIVE); URINE COLOR LT. YELLOW (YELLOW); URINE GLUCOSE (Dip) NEGATIVE (NEGATIVE); URINE KETONES (Dip) NEGATIVE (NEGATIVE); URINE LEUKOCYTE ESTERASE (Dip) NEGATIVE (NEGATIVE); URINE NITRITE (Dip) NEGATIVE (NEGATIVE); URINE TOTAL PROTEIN (Dip) NEGATIVE (NEGATIVE); URINE UROBILINOGEN (Dip) 0.2 E.U./dL (0.1-1.0)
[2016-12-05 22:14] LABS: SQUAMOUS EPITHELIAL CELL,UR RARE
[2016-12-05 22:17] LABS: ALBUMIN 4.5 g/dl (3.3-4.9); ALBUMIN/GLOBULIN RATIO 1.25; CALCIUM 9.4 mg/dl (8.4-10.2); CREATININE 0.86 mg/dl (0.44-1.00); POTASSIUM 4.1 mmol/L (3.5-5.1); TOTAL PROTEIN 8.1 g/dl (6.1-8.1)
[2016-12-05] MEDS ORDERED: HYDR-906 PO (22:45)
[2016-12-05] MEDS ORDERED: IBUP400T22 PO (22:46)
--- NOTE | 2016-12-05 22:55 | ERD ---
ER Documentation Chief Complaint Date/Time DATE: 12/05/16 TIME: 22:51 Chief Complaint RUQ abd pain x 3 days HPI This is a 26-year-old female presents here with right upper quadrant pain for the last 3 days. Patient has a known history of gallstones however she got , and cannot get surgery done. Right upper quadrant pain is intermittent described as crampy in nature. Patient denies any fevers or chills. She does admit to nausea and vomiting. She denies any diarrhea. Vomiting is nonbilious nonbloody. ROS 12 point review of systems was done, all negative except per HPI. Medications Home Meds Active Scripts Ibuprofen* (Motrin*) 400 Mg Tab, 400 MG PO Q6, #30 TAB Prov:MARSHALL FLORES 12/05/16 Hydrocodone/Acetaminophen ([place]yler 5-325 Tablet) 1 Each Tablet, 1 TAB PO Q6H Y for PAIN, #10 TAB Prov:MARSHALL FLORES 12/05/16 Clindamycin Hcl* (Clindamycin Hcl*) 300 Mg Capsule, 300 MG PO Q6 for 2 Days, # 10 CAP 0 Refills Prov:JENN WHITE MD 11/02/16 [Oxycodone/Acetamin (5/325)] 1 TAB TAB No Conflict Check, 2 TAB PO Q4H Y for PAIN LEVEL 6-10, #30 0 Refills Prov:JENN WHITE MD 11/01/16 Ibuprofen* (Ibuprofen*) 800 Mg Tablet, 800 MG PO Q8, #30 TAB 0 Refills Prov:JENN WHITE MD 11/01/16 Reported Medications Calcium Carbonate* (Calcium Carbonate*) 600 MG Ca Tab, 600 MG PO DAILY, TAB 10/17/16 Multivit/Min/Fol Ac/Iron/Pren* ( S*) 1 Tab Tab, 1 TAB PO DAILY, TAB 10/17/16 Allergies Allergies: Coded Allergies: No Known Allergy (Unverified , 10/30/16) PMhx/Soc History of Surgery: Yes () Anesthesia Reaction: No Hx Neurological Disorder: No Hx Respiratory Disorders: No Hx Cardiac Disorders: No Hx Psychiatric Problems: No Hx Miscellaneous Medical Probl: Yes (GALL STONES.) Hx Alcohol Use: No Hx Substance Use: No Hx Tobacco Use: No Smoking Status: Never smoker Physical Exam Vitals Vital Signs Date Time Temp Pulse Resp B/P Pulse Ox O2 Delivery O2 Flow Rate FiO2 12/05/16 18:47 97.8 74 20 133/80 98 Physical Exam GENERAL: The patient is well developed and appropriate for usual state of health , in no apparent distress. HEENT: Atraumatic. CHEST: Clear to auscultation bilaterally. There are no rales, wheezes or rhonchi. HEART: Regular rate and rhythm. No murmurs, clicks, rubs or gallops. ABDOMEN: Soft, nontender and nondistended. Good bowel sounds. No rebound or guarding. No gross peritonitis. No gross organomegaly or masses. No Todd sign or McBurney point tenderness. BACK: No midline or flank tenderness.. NEURO: Alert and oriented. Result Diagram: 12/05/16212412/05/162124 Results 24 hrs Laboratory Tests Test 12/05/16 21:25 White Blood Count 9.210^3/ul Red Blood Count 4.0010^6/ul Hemoglobin 12.5g/dl Hematocrit 36.8% Mean Corpuscular Volume 92.0fl Mean Corpuscular Hemoglobin 31.3pg Mean Corpuscular Hemoglobin Concent 34.0g/dl Red Cell Distribution Width 12.6% Platelet Count 90961^3/UL Mean Platelet Volume 10.0fl Neutrophils % 66.7% Lymphocytes % 24.5% Monocytes % 6.1% Eosinophils % 2.1% Basophils % 0.3% Nucleated Red Blood Cells % 0.0/100WBC Neutrophils # 6.110^3/ul Lymphocytes # 2.210^3/ul Monocytes # 0.610^3/ul Eosinophils # 0.210^3/ul Basophils # 0.010^3/ul Nucleated Red Blood Cells # 0.010^3/ul Urine Color LT. YELLOW Urine Clarity CLEAR Urine pH 6.0 Urine Specific [place] 1.010 Urine Ketones NEGATIVE Urine Nitrite NEGATIVE Urine Bilirubin NEGATIVE Urine Urobilinogen 0.2 E.U./dL Urine Leukocyte Esterase NEGATIVE Urine Microscopic RBC 2-5/HPF Urine Microscopic WBC NONE SEEN/HPF Urine Squamous Epithelial Cells RARE Urine Hemoglobin 1+ Urine Glucose NEGATIVE% Urine Total Protein NEGATIVE Sodium Level 139mmol/L Potassium Level 4.1mmol/L Chloride Level 104mmol/L Carbon Dioxide Level 25mmol/L Anion Gap 14 Blood Urea Nitrogen 16mg/dl Creatinine 0.86mg/dl Glucose Level 111mg/dl Calcium Level 9.4mg/dl Total Bilirubin 0.0mg/dl Direct Bilirubin 0.00mg/dl Indirect Bilirubin 0.0mg/dl Aspartate Amino Transf (AST/SGOT) 25IU/L Alanine Aminotransferase (ALT/SGPT) 37IU/L Alkaline Phosphatase 142IU/L Total Protein 8.1g/dl Albumin 4.5g/dl Globulin 3.60g/dl Albumin/Globulin Ratio 1.25 Lipase 77U/L Current Medications Medications (Trade) Dose Ordered Sig/Victor Manuel Route PRN Reason Start Time Stop Time Status Last Admin Dose Admin Acetaminophen/ Hydrocodone Bitart ([place]yler (5/325)) 1 tab ONCE ONCE PO 12/05/16 21:30 12/05/16 21:31 DC 12/05/16 21:34 Ondansetron HCl (Zofran Odt) 4 mg ONCE STAT ODT 12/05/16 21:02 12/05/16 21:05 DC 12/05/16 21:34 Procedures/MDM Differential Diagnosis: GERD, gastritis, peptic ulcer disease, pancreatitis, cholecystitis, choledocholithiasis, biliary colic, cholangitis, Pdbg-[id number]-Jqruji , ACS/NC, Pnuemonia : Patient does have gallstones however at this time there is no evidence of acute cholecystitis. Patient is extremely well-appearing and her pain was controlled here in the ER. Labs are all normal there is no evidence of elevated liver enzymes, bilirubin or lipase. Patient will be sent home with Tyler and ibuprofen. She is to follow-up with her primary care doctor and see a surgeon. My medical decision making was shared with the patient she understands and agrees with plan. Departure Diagnosis: Primary Impression: Gallstones Condition: Stable Patient Instructions: Gallstones Additional Instructions: Llame al doctor MAANA y hany memo OLIVERIO PARA DENTRO DE 1-2 GALICIA.Dgale a la secretaria que nosotros le instruimos hacer esta oliverio.Avise o llame si qureshi condicin se empeora antes de la oliverio. Regresa aqui si peor o no mejor. MARSHALL FLORES December 05, 2016 22:55
[2016-12-05 23:05] VITALS: BP 96/65; PULSE 64; RESP 16
== END 2016-12-05 23:07 | disposition home or self-care (01) ==
LOC: FTE 18:40
DX: K80.20 Calculus of gallbladder without cholecystitis without obstruction (principal)
CPT/HCPCS: 36415; 76705; 80053; 81001; 83690; 85025; Z7502; Z7610; 81003

== ENCOUNTER 2017-07-02 22:33 | Emergency (ER) | payer SELFPAY ==
[~2017-07-02] VITALS: Ht 160 cm; Wt 58.3 kg
[~2017-07-02 22:33] MED LIST changes: -CALC600T11 PO; +CALC600T24 PO; +HYDR-906 PO; +IBUP400T22 PO
[2017-07-02 22:47] VITALS: Ht 160 cm; Wt 58.3 kg
[2017-07-03] MEDS ORDERED: ONDANSETRON (ODT) 4 MG TAB ODT STA (02:11)
[2017-07-03] MEDS ORDERED: ONDA4TAB14 PO (02:25)
[2017-07-03] MEDS ORDERED: DICY10CA60 PO (02:25)
[2017-07-03] MEDS ORDERED: IBUP-1542 PO (02:25)
[2017-07-03] MEDS ORDERED: DICYCLOMINE 10 MG CAP PO ONE (02:30)
--- NOTE | 2017-07-03 02:37 | ERD ---
ER Documentation Chief Complaint Chief Complaint n/v/d x 3 days HPI 27-year-old female in emergency department for complaints of nausea vomiting and diarrhea for 3 days. Patient had 2 episodes of vomiting, 6 episodes of diarrhea. Patient does not have any blood in his stool or black stool. Patient does not have any blood in the vomit. Patient does not have any sick contacts. Patient did not have any recent travel. Patient is complaining of generalized abdominal pain cramping pain, accompanying the vomiting and diarrhea and is intermittent. Patient denies any flank pain. ROS All systems reviewed and are negative except as per history of present illness. Medications Home Meds Active Scripts Ondansetron (Ondansetron Odt) 4 Mg Tab.rapdis, 4 MG PO Q6H Y for NAUSEA AND/OR VOMITING, #20 TAB Prov:GISSELLE GALLOWAY NP 07/03/17 Ibuprofen* (Motrin*) 600 Mg Tab, 600 MG PO Q6H Y for PAIN AND OR ELEVATED TEMP, #30 TAB Prov:GISSELLE GALLOWAY NP 07/03/17 Dicyclomine Hcl* (Bentyl*) 10 Mg Capsule, 10 MG PO QID, #20 CAP Prov:GISSELLE GALLOWAY NP 07/03/17 Ibuprofen* (Motrin*) 400 Mg Tab, 400 MG PO Q6, #30 TAB Prov:MARSHALL FLORES 12/05/16 Hydrocodone/Acetaminophen ([place] 5-325 Tablet) 1 Each Tablet, 1 TAB PO Q6H Y for PAIN, #10 TAB Prov:MARSHALL FLORES 12/05/16 Clindamycin Hcl* (Clindamycin Hcl*) 300 Mg Capsule, 300 MG PO Q6 for 2 Days, # 10 CAP 0 Refills Prov:JENN WHITE MD 11/02/16 [Oxycodone/Acetamin (5/325)] 1 TAB TAB No Conflict Check, 2 TAB PO Q4H Y for PAIN LEVEL 6-10, #30 0 Refills Prov:JENN WHITE MD 11/01/16 Ibuprofen* (Ibuprofen*) 800 Mg Tablet, 800 MG PO Q8, #30 TAB 0 Refills Prov:JENN WHITE MD 11/01/16 Reported Medications Calcium Carbonate* (Calcium Carbonate*) 600 MG Ca Tab, 600 MG PO DAILY, TAB 10/17/16 Multivit/Min/Fol Ac/Iron/Pren* ( S*) 1 Tab Tab, 1 TAB PO DAILY, TAB 10/17/16 Allergies Allergies: Coded Allergies: No Known Allergy (Unverified , 10/30/16) PMhx/Soc History of Surgery: Yes () Anesthesia Reaction: No Hx Neurological Disorder: No Hx Respiratory Disorders: No Hx Cardiac Disorders: No Hx Psychiatric Problems: No Hx Miscellaneous Medical Probl: Yes (GALL STONES.) Hx Alcohol Use: No Hx Substance Use: No Hx Tobacco Use: No FmHx Family History: No coronary disease, No diabetes, No other Physical Exam Vitals Vital Signs Date Time Temp Pulse Resp B/P Pulse Ox O2 Delivery O2 Flow Rate FiO2 07/02/17 22:47 98.3 89 6 93/50 98 Physical Exam GENERAL: The patient is well developed and appropriate for usual state of health, in no apparent distress. CHEST: Clear to auscultation bilaterally. There are no rales, wheezes or rhonchi. HEART: Regular rate and rhythm. No murmurs, clicks, rubs or gallops. No S3 or S4. ABDOMEN: Soft, nontender and nondistended. Hyperactive bowel sounds. No rebound or guarding. No gross peritonitis. No gross organomegaly or masses. No Todd sign or McBurney point tenderness. BACK: No midline or flank tenderness. EXTREMITIES: Equal pulses bilaterally. There is no peripheral clubbing, cyanosis or edema. No focal swelling or erythema. Full range of motion. Grossly neurovascularly intact. NEURO: Alert and oriented. Cranial nerves 2-12 intact. Motor strength in all 4 extremities with 5/5 strength. Sensation grossly intact. Normal speech and gait. SKIN: There is no apparent rash or petechia. The skin is warm and dry. HEMATOLOGIC AND LYMPHATIC: There is no evidence of excessive bruising or lymphedema. No gross cervical, axillary, or inguinal lymphadenopathy. Results 24 hrs Current Medications Medications (Trade) Dose Ordered Sig/Victor Manuel Route PRN Reason Start Time Stop Time Status Last Admin Dose Admin Dicyclomine HCl (Bentyl) 20 mg ONCE ONCE PO 07/03/17 02:30 07/03/17 02:31 Ondansetron HCl (Zofran Odt) 4 mg ONCE STAT ODT 07/03/17 02:11 07/03/17 02:12 DC Patient was given Zofran here in the emergency department. After treatment, patient was able to tolerate po fluids here in the emergency department without any vomiting. There is no signs and symptoms of dehydration. Bentyl was also given here in the emergency department. Procedures/MDM Medical Decision Making: Patient symptoms of abdominal pain vomiting diarrhea most likely is consistent with viral gastroenteritis. No active vomiting at this time, no symptoms of dehydration. There is low suspicion for abdominal emergencies at this time. Patients abdominal exam is normal at this time. Radiology exams or laboratory testing not indicated at this time. There is low suspicion for appendicitis, cholecystitis, abdominal aortic aneurysms or peritonitis at this time. There is low suspicion for sepsis. Patient appears well and is hemodynamically stable. Disposition: Home. Condition: Stable Prescription Bentyl, Zofran, ibuprofen Instructions: Patient is advised to take medications as prescribed. Patient is advised to rest, increase fluid intake and do brat diet for next 1-2 days and progress as tolerated. Patient is advised that if symptoms are worse, severe abdominal pain, uncontrolled vomiting, high fever, severe flank pain, worst signs and symptoms, to return to the emergency department immediately. Otherwise, patient can follow up with primary care doctor in 5-7 days. Disclaimer: Inadvertent spelling and grammatical errors are likely due to EHR/ dictation software use and do not reflect on the overall quality of patient care. Also, please note that the electronic time recorded on this note does not necessarily reflect the actual time of the patient encounter. Departure Diagnosis: Primary Impression: Viral gastroenteritis Condition: Stable Patient Instructions: Gastroenteritis, Viral (6Y-Adult) GISSELLE GALLOWAY NP Jul 03, 2017 02:37
[2017-07-03 02:40] VITALS: BP 109/66; PULSE 77; RESP 16; TEMP 96.8
== END 2017-07-03 02:50 | disposition home or self-care (01) ==
LOC: FTE 22:33
DX: A08.4 Viral intestinal infection, unspecified (principal)
CPT/HCPCS: 99284

== ENCOUNTER 2017-09-14 14:59 | Emergency (ER) | END 2017-09-14 19:56 | disposition home or self-care (01) ==

== ENCOUNTER 2018-11-08 22:49 | Emergency (ER) | payer MEDICAID ==
[~2018-11-08] VITALS: Wt 59.6 kg
[~2018-11-08 22:49] MED LIST changes: -CLIN-73 PO; +CLIN300C10 PO; +DICY10CA40 PO; +HYDR-4011 PO; -HYDR-906 PO; +IBUP-1542 PO; +IBUP-1544 PO; +IBUP-1561 PO; -IBUP400T22 PO; -IBUP800T25 PO; +ONDA4TAB14 PO
[2018-11-09] MEDS ORDERED: IBUPROFEN 600 MG TAB PO ONE (03:30)
[2018-11-09 06:00] VITALS: BP 93/65; PULSE 75; RESP 16
--- NOTE | 2018-11-09 08:54 | ERD ---
ER Documentation Chief Complaint Chief Complaint pain right shoulder, fell in the shower yesterday HPI This is a 28-year-old female presents to the ED with right shoulder pain status post mechanical trip and fall while in the shower last night. No head injury or LOC. Patient states she landed onto her right shoulder. She states her "popped" her shoulder back into place. She states her pain initially improved but she has been having worsening pain since early this morning. She has been taking Motrin at home with temporary relief of her pain. She also endorses subjective numbness to her left third and fourth fingers. Denies any focal weakness. Denies any neck pain. Denies any back pain. No other injuries reported. ROS All systems reviewed and are negative except as per history of present illness. Medications Home Meds Active Scripts Ibuprofen* (Motrin*) 600 Mg Tab, 600 MG PO Q6H PRN for PAIN AND OR ELEVATED TEMP, #30 TAB Prov:JUWAN ADAMES MD 09/14/17 Ondansetron (Ondansetron Odt) 4 Mg Tab.rapdis, 4 MG PO Q6H PRN for NAUSEA AND/OR VOMITING, #20 TAB Prov:GISSELLE GALLOWAY NP 07/03/17 Ibuprofen* (Motrin*) 600 Mg Tab, 600 MG PO Q6H PRN for PAIN AND OR ELEVATED TEMP, #30 TAB Prov:GISSELLE GALLOWAY NP 07/03/17 Dicyclomine HCl (Dicyclomine HCl) 10 Mg Capsule, 10 MG PO QID, #20 CAP Prov:GISSELLE GALLOWAY NP 07/03/17 Ibuprofen* (Motrin*) 400 Mg Tab, 400 MG PO Q6, #30 TAB Prov:MARSHALL FLORES 12/05/16 Hydrocodone/Acetaminophen ([place] 5-325 Tablet) 1 Each Tablet, 1 TAB PO Q6H PRN for PAIN, #10 TAB Prov:MARSHALL FLORES 12/05/16 Clindamycin Hcl* (Clindamycin Hcl*) 300 Mg Capsule, 300 MG PO Q6 for 2 Days, #10 CAP 0 Refills Prov:JENN WHITE MD 11/02/16 [Oxycodone/Acetamin (5/325)] 1 TAB TAB No Conflict Check, 2 TAB PO Q4H PRN for PAIN LEVEL 6-10, #30 0 Refills Prov:JENN WHITE MD 11/01/16 Ibuprofen* (Ibuprofen*) 800 Mg Tablet, 800 MG PO Q8, #30 TAB 0 Refills Prov:JENN WHITE MD 11/01/16 Reported Medications Calcium Carbonate* (Calcium Carbonate*) 600 MG Ca Tab, 600 MG PO DAILY, TAB 10/17/16 Multivit/Min/Fol Ac/Iron/Pren* ( S*) 1 Tab Tab, 1 TAB PO DAILY, TAB 10/17/16 Allergies Allergies: Coded Allergies: No Known Allergy (Unverified , 10/30/16) PMhx/Soc History of Surgery: Yes () Anesthesia Reaction: No Hx Neurological Disorder: No Hx Respiratory Disorders: No Hx Cardiac Disorders: No Hx Psychiatric Problems: No Hx Miscellaneous Medical Probl: Yes (Gallstones) Hx Alcohol Use: No Hx Substance Use: No Hx Tobacco Use: No Physical Exam Vitals Vital Signs Date Temp Pulse Resp B/P (MAP) Pulse Ox O2 O2 Flow FiO2 Time Delivery Rate 11/09/18 98.5 75 16 93/65 (74) 100 Room Air 06:00 11/08/18 97.9 86 20 116/73 100 22:59 (87) Physical Exam Const: No acute distress Head: Atraumatic Eyes: Normal Conjunctiva ENT: Normal External Ears, Nose and Mouth. Neck: Full range of motion. No meningismus. Resp: Clear to auscultation bilaterally Cardio: Regular rate and rhythm, no murmurs Abd: Soft, non tender, non distended. Normal bowel sounds Skin: No petechiae or rashes Back: No midline or flank tenderness Upper Extremity -right Skin: No laceration, or evidence of external trauma Compartments: Soft Motor: Full active range of motion shoulder/elbow/wrist/hand Sensation: Intact shoulder/pinky/middle finger/thumb web space Bones: + Mild tenderness to palpation along the right superior humeral head. Nontender elbow/forearm/wrist/hand Snuffbox: Nontender Joints: No effusion Pulses/Perfusion: 2+ radial, Capillary refill < 2 seconds Neur: Awake and alert Psych: Normal Mood and Affect Results 24 hrs Current Medications Medications Dose Sig/Victor Manuel Start Time Status Last (Trade) Ordered Route PRN Stop Time Admin Dose Reason Admin Ibuprofen 600 mg ONCE ONCE 11/09/18 DC 11/09/18 (Motrin) PO 03:30 11/09/18 03:22 03:31 Procedures/MDM LABS & DIAGNOSTIC IMAGING: PROCEDURE: XR right shoulder. CLINICAL INDICATION: Pain TECHNIQUE: AP Internal and external rotation and transscapular views of the left shoulder were performed. COMPARISON: None. FINDINGS: There is normal osseous mineralization and alignment. No acute fracture or osseous lesion is identified. There are normal joints without evidence of arthritis or dislocation. The soft tissues are unremarkable. IMPRESSION: No acute osseous abnormality. PROCEDURES: Sling assessment: Neurovascularly intact post splint placement with good fit. ED COURSE: The patient was given ibuprofen The medication was well tolerated and the patient had market improvement in symptoms. The patient remained stable throughout ED course. MEDICAL DECISION MAKIN-year-old female presents with right shoulder pain status post trip and fall in the shower. Patient is neurovascularly intact. Physical exam is essentially unremarkable. X-ray as above is negative for any acute fracture or dislocation. She was given copies of her x-ray report and told to follow-up with her regular doctor in 1 week if still having significant pain. Patient was placed in sling for comfort. I offered prescription for ibuprofen the patient states she has some at home. Recommended follow-up with her regular doctor in 2 days, otherwise return here for any new or worsening symptoms. No evidence of compartment syndrome, neurologic injury, vascular injury, open joint, open fracture, tendon laceration, or foreign body. PRESCRIPTIONS: None, patient has ibuprofen at home. SPECIALIST FOLLOW UP RECOMMENDED: None Patient has been advised to follow up with primary care in 1-2 days. Departure Diagnosis: Primary Impression: Shoulder injury Encounter type: initial encounter Laterality: right Qualified Codes: S49.91XA - Unspecified injury of right shoulder and upper arm, initial encounter Condition: Stable Patient Instructions: Shoulder Isometric Exercises, Shoulder Immobilizer Referrals: COMMUNITY CLINICS YOU HAVE RECEIVED A MEDICAL SCREENING EXAM AND THE RESULTS INDICATE THAT YOU DO NOT HAVE A CONDITION THAT REQUIRES URGENT TREATMENT IN THE EMERGENCY DEPARTMENT. FURTHER EVALUATION AND TREATMENT OF YOUR CONDITION CAN WAIT UNTIL YOU ARE SEEN IN YOUR DOCTORS OFFICE WITHIN THE NEXT 1-2 DAYS. IT IS YOUR RESPONSIBILITY TO MAKE AN APPOINTMENT FOR FOLOW-UP CARE. IF YOU HAVE A PRIMARY DOCTOR --you should call your primary doctor and schedule an appointment IF YOU DO NOT HAVE A PRIMARY DOCTOR YOU CAN CALL OUR PHYSICIAN REFERRAL HOTLINE AT IF YOU CAN NOT AFFORD TO SEE A PHYSICIAN YOU CAN CHOSE FROM THE FOLLOWING [facility] [address] [facility] [address] [facility] [place] [address] [facility] [address] [facility] [address] [facility]. [facility] [address] [facility]. [facility] YOU HAVE RECEIVED A MEDICAL SCREENING EXAM AND THE RESULTS INDICATE THAT YOU DO NOT HAVE A CONDITION THAT REQUIRES URGENT TREATMENT IN THE EMERGENCY DEPARTMENT. FURTHER EVALUATION AND TREATMENT OF YOUR CONDITION CAN WAIT UNTIL YOU ARE SEEN IN YOUR DOCTORS OFFICE WITHIN THE NEXT 1-2 DAYS. IT IS YOUR RESPONSIBILITY TO MAKE AN APPOINTMENT FOR FOLOW-UP CARE. IF YOU HAVE A PRIMARY DOCTOR --you should call your primary doctor and schedule and appointment IF YOU DO NOT HAVE A PRIMARY DOCTOR YOU CAN CALL OUR PHYSICIAN REFERRAL HOTLINE AT . IF YOU CAN NOT AFFORD TO SEE A PHYSICIAN YOU CAN CHOSE FROM THE FOLLOWING [facility]: [facility] [address] [place] [address] [facility] [address] [place] [address] [facility] + [facility] [address] [place] [address] [facility]SPECIALTIES Additional Instructions: Take ibuprofen as needed for pain. Wear the sling as needed for any comfort. Do range of motion exercises at nighttime to avoid frozen shoulder. Follow-up with your regular doctor next week as you may need MRI if your pain does not improve. Return here for any new or worsening symptoms. JAMES BEGUM PA-C Nov 09, 2018 08:54
== END 2018-11-09 06:03 | disposition home or self-care (01) ==
LOC: FTE 22:49
DX: S49.91XA Unspecified injury of right shoulder and upper arm, initial encounter (principal); W18.2XXA Fall in (into) shower or empty bathtub, initial encounter; Y92.9 Unspecified place or not applicable
CPT/HCPCS: 73030; Z7610